=== PATIENT | male | born 2000 | race Caucasian/White ===

== ENCOUNTER 2022-03-20 17:23 | Outpatient (CLI) | payer BC, SELFPAY ==
--- NOTE | 2022-03-20 17:48 | XR_ITS ---
WS: [id number] Lumbar spine, 3 views, 03/20/2022. Clinical Data: LOW BACK PAIN Comparison: None. Findings: No compression fractures or subluxation is seen. No disc space narrowing is seen. The transverse proc esses and SI joints are normal. XR/XR lumbar spine 2-3V* [id number] Impression: Negative lumbar spine.
== END 2022-03-20 17:24 | disposition home or self-care (01) ==
PROVIDERS: Visit Provider Chiropractor
DX: M54.51 Vertebrogenic low back pain (principal)
CPT/HCPCS: 72100

== ENCOUNTER 2025-04-21 12:17 | Outpatient (CLI) | payer BC, SELFPAY ==
--- NOTE | 2025-04-21 12:41 | MR_ITS ---
WS: [id number] MRI LUMBAR SPINE NONCONTRAST HISTORY: LOW BACK PAIN WITH RADICULOPATHY COMPARISON: None available. TECHNIQUE: Sagittal and axial multisequence imaging is submitted. Mild straightening of the normal thoracic kyphosis and cervical lordosis. Normal lumbar alignment with no compression fractures or marrow edema. Disc spaces and vertebral body heights are well-preserved. Conus terminates normally at L1-2 disc level. L1-L2: Normal. L2-L3: Normal. L3-L4: Mild disc bulging. Mild ligamentum flavum and facet arthritis. There is very slight narrowing of the central canal, subarticular recesses and foramina. There is mild encroachment upon the traversing and exiting nerve roots. L4-L5: Mild disc bulging. Broad-based central disc protrusion extends greatest to the LEFT. Disc extends into the subarticular recesses and contacts the traversing L5 nerve roots. Moderate ligamentum flavum and facet arthritis. Bilateral foraminal disc protrusions, LEFT greater than RIGHT. Mild central with bilateral subarticular recess stenosis. Moderate to severe LEFT and moderate RIGHT foraminal stenosis. L5-S1: Mild disc bulging with a central disc protrusion. Very mild encroachment upon the S1 nerve roots, LEFT greater than RIGHT. Moderate to severe bilateral foraminal stenosis, LEFT greater than RIGHT. Paravertebral soft tissues are normal. MR/MR lumbar spine wo con* [id number] IMPRESSION: 1. Small caliber central canal beginning at L3-L5. 2. L4-5: Broad-based central disc protrusion asymmetric to the LEFT with ligam entum flavum and facet arthritis. Bilateral foraminal disc protrusions, LEFT gr eater than RIGHT. Combination of findings resulting in moderate to severe LEFT and moderate RIGHT foraminal stenosis. Mild central and bilateral subarticular recess stenosis. 3. L5-S1: Central disc protrusion with facet joint arthropathy. Moderate to se bonita bilateral foraminal stenosis, LEFT greater than RIGHT. 4. Mild central, subarticular recess and foraminal stenosis at L3-4.
== END 2025-04-21 12:18 | disposition home or self-care (01) ==
PROVIDERS: Visit Provider Nurse Practitioner Family
DX: G89.29 Other chronic pain (principal)
CPT/HCPCS: 72148